=== PATIENT | male | born 1980 | race Caucasian/White ===

== ENCOUNTER 2018-12-08 07:20 | Inpatient (IN) ==
--- NOTE | 2018-12-08 08:01 | PROVIDER DOCUMENTATION ---
HPI-General Adult - General Chief Complaint: Generalized Pain Stated Complaint: ABD PAIN Time Seen by Provider: 12/08/18 07:41 Source: patient Allergies/Adverse Reactions: Patient Allergies Allergy/AdvReac Type Severity Reaction Status Date / Time No Known Allergies Allergy Verified 12/08/18 07:32 - History of Present Illness -Gen Adult Nature of Presenting Problems: Presents to the with complaints of generalized body cramps. he states this has been going on for the past few days. 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 He states he has been trying to drink pedialyte. He states this has happened to him in the past where he needed to stay in the hospital and receive 3 bags of saline. He is also an everyday drinker of 1 pint of alcohol per day. He denies any nausea, vomiting, diarrhea, constipation, fevers or chills. Location of Pain/Injury: reports: generalized Quality of Pain: reports: cramping Onset/Duration: reports: 3 days ago Timing: reports: still present Modifying Factors: improves with: nothing Similar Symptoms Previously?: Yes Recently seen or treated by another doctor?: No Review of Systems - Adult - REVIEW OF SYSTEMS - ADULT Constitutional: reports: no symptoms reported Eyes: reports: no symptoms reported Ears, Nose, Mouth & Throat: reports: no symptoms reported Cardiovascular: reports: no symptoms reported Respiratory: reports: no symptoms reported Gastrointestinal: reports: no symptoms reported Genitourinary: reports: no symptoms reported Musculoskeletal: reports: frequent leg cramps, muscle aches, muscle weakness Integumentary: reports: no symptoms reported Neurological: reports: no symptoms reported Psychiatric: reports: no symptoms reported Endocrine: reports: no symptoms reported Hematologic/Lymphatic: reports: no symptoms reported Allergic/Immunologic: reports: no symptoms reported All Other Systems: Reviewed and Negative Past History - Adult - PAST MEDICAL HISTORY-ADULT Review of Records: reports: Old Records Reviewed, Nursing Assessment Review Physical Exam-General - PHYSICAL EXAM-ADULT Initial Vital Signs Reviewed: Yes - CONSTITUTIONAL General Appearance: appears well, alert, no apparent distress, other (sitting in bed, palying on cell phone) - EYES Eyes: PERRL/EOMI - HEAD, EARS, NOSE, MOUTH & THROAT HENMT: normocephalic/atraumatic, moist mucous membranes - NECK Neck: non-tender, full range of motion - RESPIRATORY Respiratory: chest non-tender, lungs clear, normal breath sounds - CARDIOVASCULAR Cardiovascular: normal peripheral pulses, tachycardia - GASTROINTESTINAL (ABDOMEN) Abdominal Exam: normal bowel sounds, non tender, soft - MUSCULOSKELETAL Back Exam: normal inspection Extremity: normal range of motion, normal gait, normal inspection - SKIN Integumentary: normal color, warm/dry - NEUROLOGIC 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, no motor/sensory deficits - PSYCHIATRIC Psych/Mental Status: normal mood/affect, oriented x 3 Progress - PLAN OF CARE/RESULTS Progress/Plan/Lab Results: Vital Signs - 8 hr 12/08/18 07:27 Temperature 98.5 F Pulse Rate 121 H Respiratory Rate 18 Blood Pressure 140/92 O2 Sat by Pulse Oximetry 99 Orders Category Date Time Status IV [Saline Loc] NOW Care 12/08/18 07:56 Active ALCOHOL BLOOD Stat Lab 12/08/18 07:57 Uncollected CBC WITH ELECTRONIC DIFF [HEME] Stat Lab 12/08/18 07:55 Uncollected CK TOTAL [CHEM] Stat Lab 12/08/18 07:57 Uncollected COMPREHENSIVE METABOLIC PANEL [CHEM] Stat Lab 12/08/18 07:[address] W/POSS RFLX CULT [URINALYSIS] Stat Lab 12/08/18 07:55 Uncollected Patient very well appearing. Sitting in bed on cell phone. UDS showing multiple drugs. No ketones in urine. Cr slightly elevated to 1.3 and initial tachycardia to 121. Patient given 1L NS in the ED. CK came back at 2300. Will admit to obs for rhabdo. Spoke to Dr Knox in the ED while he was evaluating another patient and patient was accepted. Result Diagrams: 12/08/18 08:03 12/08/18 08:03 Departure - Departure Date of Disposition Decision: 12/08/18 Time of Disposition Decision: 10:20 DIAGNOSIS: Rhabdomyolysis, FAITH (acute kidney injury) Disposition: ADMITTED INPATIENT 09 Certified Medical Emergency: Emergent Condition: Stable Additional Freetext Instructions: ED Follow Up Instructions: You have been treated by a care provider in the Emergency Department. These instructions are being provided to you so you can have an understanding of how to care for yourself upon discharge. Upon discharge from the Emergency Department, you are responsible for making arrangements for follow-up care by a physician of your choice. Take all prescribed medications as directed. Return to the Emergency Department immediately for any new or worsening symptoms. You may call the Physician Referral phone number at [phone] to obtain a list of Physicians who are taking new patients. Referrals and Follow-Ups: None,PCP [Primary Care Provider] - - Critical Care Note This patient required my direct & personal management of CC.: No Attestation - Physician/ CECI Attestation Patient care was provided by Advanced Practice Provider:: No The physician spent face to face time with patient:: Yes Advanced Practice Provider documentation review:: Supervising physician onsite and consulted in the evaluation and care of this patient. The physician did have a face to face encounter with the patient.
[2018-12-08 08:22] LABS: BILIRUBIN URINE NEGATIVE (NEGATIVE); BLOOD URINE NEGATIVE (NEGATIVE); CLARITY CLEAR (CLEAR); COLOR YELLOW; GLUCOSE URINE NEGATIVE (NEGATIVE); KETONE URINE NEGATIVE (NEGATIVE); LEUKOCYTES URINE TRACE (NEGATIVE); NITRITE URINE NEGATIVE (NEGATIVE); PROTEIN URINE NEGATIVE (NEGATIVE); UROBILINOGEN URINE NORMAL
[2018-12-08 08:28] LABS: BASO# 0.03 X1000 (0.0-0.2); BASO% 0.5 % (0.0-0.8); EOS# 0.24 X1000 (0.0-0.7); EOS% 4.2 % (0.0-10.0); HEMATOCRIT 46.6 % (42.0-52.0); HEMOGLOBIN 15.6 g/dL (14.0-18.0); IMM GRAN# 0.02 X1000 (0.0-0.04); IMM GRAN% 0.4 % (0.0-0.5); LYMPH# 1.39 X1000 (1.2-3.4); LYMPH% 24.3 % (20.5-51.1); MCH 30.8 PG (27-31); MCHC 33.5 g/dL (33-37); MCV 92.1 FL (81-99); MONO# 0.82 X1000 (0.11-0.59); MONO% 14.4 % (1.7-9.3); MPV 10.1 FL (7.4-10.4); NEUT# 3.21 X1000 (1.4-6.5); NEUT% 56.2 % (42.2-75.2); PLT 381 X1000 (130-400); RBC 5.06 XMIL (4.7-6.1); RDW 16.8 % (11.5-14.5); WBC 5.71 X1000 (4.8-10.8)
[2018-12-08 08:28] LABS: URINE EPITHELIAL CELLS <10 /HPF (<10); URINE SOURCE CLEAN CATCH; URINE WBC <10 /HPF (<10)
[2018-12-08 08:37] LABS: UR AMPHETAMINES QUAL PRESUMPTIVE POSITIVE (NONE DETECT); UR BARBITUATES QUAL NONE DETECTED (NONE DETECT); UR BENZODIAZEPIN QUAL NONE DETECTED (NONE DETECT); UR COCAINE QUAL NONE DETECTED (NONE DETECT); UR METHADONE QUAL NONE DETECTED (NONE DETECT); UR METHAMPHETAMINE QUAL NONE DETECTED (NONE DETECT); UR OPIATES QUAL NONE DETECTED (NONE DETECT); UR OXYCODONE QUAL NONE DETECTED (NONE DETECT); UR PCP QUAL NONE DETECTED (NONE DETECT); UR PROPOXYPHENE QUAL NONE DETECTED (NONE DETECT)
[2018-12-08 08:38] LABS: UR CANNABINOIDS QUAL PRESUMPTIVE POSITIVE (NONE DETECT); UR TCA QUAL PRESUMPTIVE POSITIVE (NONE DETECT)
[2018-12-08 08:52] LABS: AGAP 10; ALBUMIN 4.3 g/dL (3.5-5.0); ALKALINE PHOSPHATASE 62 U/L (32-122); BUN 12 mg/dL (8-22); CALCIUM 9.3 mg/dL (8.8-10.2); CHLORIDE 98 mmol/L (98-107); COSMO 273; CREATININE 1.3 mg/dL (0.7-1.2); ESTIMATED GFR > 60; GLUCOSE 93 mg/dL (70-104); GOT 84 U/L (10-34); GPT 42 U/L (10-44); POTASSIUM 5.1 mmol/L (3.5-5.1); SODIUM 137 mmol/L (136-145); TCO2 29 mmol/L (25-35); TOTAL PROTEIN 7.8 g/dL (6.3-8.3)
[2018-12-08] MEDS ORDERED: NS 1,000 ML IV ONE ×2 (08:58→10:22)
[2018-12-08] MEDS ORDERED: MOTRIN PO ONE (08:58)
[2018-12-08 09:11] LABS: CK TOTAL 2313 U/L (24-204)
[2018-12-08] MEDS ORDERED: NS 150 ML IV ONE ×2 (10:21→10:45)
[2018-12-08] MEDS: NS 1,000 ML IV SCH ×2 (14:23→22:10)
[2018-12-08] MEDS: LIBRIUM PO SCH ×2 (14:23→20:06)
[2018-12-08] MEDS: NICODERM PATCH TD SCH (14:23)
[2018-12-08] MEDS: M.V.I.-12 10 ML, FOLIC ACID 1 MG, MAGNESIUM SULFATE 1 GM, THIAMINE 100 MG in NS 1,000 ML IV SCH (14:59)
--- NOTE | 2018-12-08 15:10 | HISTORY AND PHYSICAL ---
PRIMARY CARE PHYSICIAN: None. CHIEF COMPLAINT: Generalized body aches and cramping. HISTORY OF PRESENTING ILLNESS: This is a 38-year-old male who presents to [facility] ER with complaints of generalized body cramping that has progressively worsened over the last several days. He states he works outside doing heavy lifting and had been trying to drink Pedialyte. He has had rhabdomyolysis in the past. He notes that he drinks a pint of alcohol daily and has done that for several years apparently. When first asked about his drug use, he denied any until I said that well your urine drug screen had multiple positives and then he admitted that yesterday he used a line of methamphetamine that he states a "co-worker" had and that was the 1st time that he had ever used methamphetamines. His urine drug screen was presumptive positive for tricyclics, amphetamines and cannabinoids. When I questioned him about marijuana use, he did admit to using marijuana 1 joint every other day. His laboratory data showed a creatine kinase of 2313. Urinalysis was negative. He was admitted to the medical unit for further evaluation and treatment. It is noted that the patient wanted to leave the floor and the tech told him that he could not leave the floor with an IV, stated he needed to move his car, explained that his could move his car, went back to the room and both the patient and the were gone and had exited down our back stairwell. There well waited on the patient to arrive back to his room. He came back up the back stairwell. It was noted to smell of marijuana per our staff. I explained to the patient that he could not leave the floor with a IV in place. If he continued to leave the floor, we would have to remove his IV and we would consider that he did not want any treatment and the patient verbalized understanding and stated that he would not leave the floor again. PAST MEDICAL HISTORY: Rhabdomyolysis. PAST SURGICAL HISTORY: None. FAMILY HISTORY: Reviewed and noncontributory. SOCIAL HISTORY: He currently lives with his . Smokes a pack of cigarettes daily. Drinks a pint of alcohol daily. Uses methamphetamine and cannabinoids. ALLERGIES: He has no known drug allergies. HOME MEDICATIONS: He does not take any medicines on a routine basis prescribed by a physician. LABORATORY DATA: Showed a white blood cell count of 5.71, hemoglobin 15.6, hematocrit 46.6, platelets 381,000. Sodium 137, potassium 5.1, chloride 98, CO2 29, BUN of 12, creatinine 1.3, glucose 93. AST of 84, ALT 42. Creatine kinase was 2313. Urinalysis was negative. Again, urine drug screen was presumptive positive for tricyclics, amphetamines, and cannabinoids. Serum alcohol level showed none detected. REVIEW OF SYSTEMS: He denied any fever, chills, blurred vision, dizziness. He complained of generalized muscle cramps and body aches. Denied any abdominal pain, constipation, diarrhea, burning or hurting with urination. PHYSICAL EXAMINATION: On arrival he had a temperature of 98.5 degrees, pulse 121, respirations 18, blood pressure 140/92 saturating 99% on room air. GENERAL: This is a 38-year-old male sitting on the side of the bed answers questions appropriately. HEENT: Normocephalic, atraumatic. Normal ENT inspection. Oropharynx and nares are clear. Pupils are equal, round, reactive to light and accommodation. Extraocular movements are intact. NECK: Normal inspection, normal range of motion. LUNGS: Clear to auscultation bilaterally with equal lung expansion. Chest wall movement. HEART: Regular rate and rhythm. No murmurs, rubs, or gallops. It is noted on arrival he was in sinus tachycardia. ABDOMEN: Soft, nontender, nondistended. Bowel sounds are present x4 quadrants. MUSCULOSKELETAL: He has 5/5 strength x4 extremities. He does have a little mild tremor to his hands, most likely related to DTs. NEUROLOGICAL: The cranial nerves 2-12 appear grossly intact. ASSESSMENT: 1. Rhabdomyolysis. 2. Ethanol abuse. 3. Polysubstance drug abuse. 4. Tobacco abuse. PLAN: 1. He will be admitted to the medical unit. Placed on a regular diet. We will place on normal saline at 150 mL an hour, give a banana bag of fluids daily, Ativan 1 mg IV every 4 hours p.r.n. for alcohol withdrawal. 2. Nicotine patch 21 mg transdermally daily and place him on a high-dose Librium taper. 3. Recheck a CBC, CMP, cardiac profile in the a.m. 4. Again, the patient was notified that he could not leave the floor with an IV in place without accompaniment of a staff member. If he continued to try to leave the floor with an IV and that we would remove his IV and assume that he did not want any medical treatment. The patient verbalized understanding, stated he would not leave the floor any further. 5. Further orders after seen by attending. Dictated by DEBBIE Perez for Maico Knox MD cc: DEBBIE Perez MD
[2018-12-08 15:43] LABS: AGAP 8; ALBUMIN 3.5 g/dL (3.5-5.0); ALKALINE PHOSPHATASE 51 U/L (32-122); BUN 13 mg/dL (8-22); CALCIUM 8.2 mg/dL (8.8-10.2); CHLORIDE 105 mmol/L (98-107); COSMO 276; CREATININE 1.3 mg/dL (0.7-1.2); ESTIMATED GFR > 60; GLUCOSE 76 mg/dL (70-104); GOT 54 U/L (10-34); GPT 33 U/L (10-44); POTASSIUM 4.7 mmol/L (3.5-5.1); SODIUM 139 mmol/L (136-145); TCO2 26 mmol/L (25-35); TOTAL PROTEIN 6.4 g/dL (6.3-8.3)
[2018-12-08] MEDS: ATIVAN IV PRN ×2 (16:38→23:02)
[2018-12-08] MEDS ORDERED: FLU VACCINE IM ONE (16:50)
[2018-12-08] MEDS: NUBAIN IV PRN (21:18)
[2018-12-09] MEDS: LIBRIUM PO SCH ×4 (02:27→20:15)
[2018-12-09] MEDS: NS 1,000 ML IV SCH ×4 (04:49→23:48)
[2018-12-09 07:29] LABS: BASO# 0.03 X1000 (0.0-0.2); BASO% 0.6 % (0.0-0.8); EOS# 0.51 X1000 (0.0-0.7); EOS% 10.1 % (0.0-10.0); HEMOGLOBIN 13.3 g/dL (14.0-18.0); IMM GRAN# 0.05 X1000 (0.0-0.04); LYMPH% 37.5 % (20.5-51.1); MCH 30.4 PG (27-31); MCHC 32.4 g/dL (33-37); MCV 93.6 FL (81-99); MONO# 0.68 X1000 (0.11-0.59); MONO% 13.4 % (1.7-9.3); MPV 10.3 FL (7.4-10.4); NEUT# 1.89 X1000 (1.4-6.5); NEUT% 37.4 % (42.2-75.2); PLT 327 X1000 (130-400); RBC 4.38 XMIL (4.7-6.1); RDW 16.5 % (11.5-14.5); WBC 5.06 X1000 (4.8-10.8)
[2018-12-09 08:02] LABS: CK INDEX 0.4 (0.0-2.5); CK-MB 3.14 ng/mL (0.0-5.0)
[2018-12-09] MEDS: NICODERM PATCH TD SCH (08:25)
[2018-12-09] MEDS: M.V.I.-12 10 ML, FOLIC ACID 1 MG, MAGNESIUM SULFATE 1 GM, THIAMINE 100 MG in NS 1,000 ML IV SCH (08:25)
[2018-12-09] MEDS: NUBAIN IV PRN ×2 (11:07→23:43)
[2018-12-09 12:15] LABS: AGAP 8; ALBUMIN 3.6 g/dL (3.5-5.0); ALKALINE PHOSPHATASE 51 U/L (32-122); BUN 9 mg/dL (8-22); CALCIUM 7.9 mg/dL (8.8-10.2); CHLORIDE 106 mmol/L (98-107); COSMO 279; CREATININE 1.2 mg/dL (0.7-1.2); ESTIMATED GFR > 60; GLUCOSE 90 mg/dL (70-104); GOT 39 U/L (10-34); GPT 31 U/L (10-44); POTASSIUM 4.7 mmol/L (3.5-5.1); SODIUM 141 mmol/L (136-145); TCO2 26 mmol/L (25-35); TOTAL PROTEIN 6.3 g/dL (6.3-8.3)
[2018-12-09 12:16] LABS: CK PROFILE 714 U/L (24-204)
[2018-12-09 12:31] LABS: CK INDEX 0.4 (0.0-2.5)
[2018-12-09] MEDS: ATIVAN IV PRN ×2 (13:25→23:43)
--- NOTE | 2018-12-09 14:33 | PROGRESS NOTE ---
DATE: 12/09/2018 SUBJECTIVE: This patient is feeling better. He is complaining of generalized muscle soreness and anxiety. I had a large conversation with the patient and the , who is at the bedside. Laboratory looks better today but creatinine was slightly elevated yesterday. AST elevated as well but trending down. I will continue with 1 more day of IV fluids. I will hopefully discharge this patient home tomorrow. OBJECTIVE: Vital Signs: Temperature 97.4 degrees, pulse 93, respiratory rate 18, blood pressure 130/96, oxygen saturation 100% on room air. HEENT: Head normocephalic. No trauma. PERRLA. Neck: Supple. No JVD. No masses. Central trachea. Chest: Clear to auscultation. No wheezing. No rales. Abdomen: Soft, nontender, nondistended. No hepatosplenomegaly. Extremities: No edema. No clubbing. No cyanosis. Neurological Examination: The patient is alert and oriented x3. No focal deficits. Laboratory: WBC 5, hemoglobin 13.3, hematocrit 41, platelets 327,000. Sodium 141, potassium 4.7, chloride 106, bicarbonate 26, BUN 9, creatinine 1.2, glucose 90, calcium 7.9. AST 39, ALT 31, alkaline phosphatase 51. CK 714. Albumin 3.6. ASSESSMENT AND PLAN: 1. Rhabdomyolysis. I will continue with intravenous fluids. Hopefully, tomorrow, if the CK level is trending down, I will discharge him. He came in with acute kidney injury and the creatinine decreased from 1.3 to 1.2. I do not have a baseline on this patient. 2. Alcohol abuse. This patient has been highly advised against alcohol use. We will continue on a Librium taper. Also, I will go ahead and continue with the banana bag. I will continue with daily cessation education. 3. Polysubstance abuse. This patient has been highly advised against polysubstance abuse. As per the patient, this is the first time that he did amphetamines. I will continue with daily cessation education. He seems to understand. His is at the bedside. 4. Tobacco use. He has been advised against tobacco use. I will do cessation education as well. 5. I had a large conversation with the patient about rhabdomyolysis, alcohol abuse, weightlifting, tobacco use, and drug use. I recommended to him to not lift weights for at least a few days since he came in with rhabdomyolysis. He seems to understand. Also, I advised the patient not to leave the medical floor since he has an intravenous line placed. Hopefully, tomorrow morning, I will discharge this patient home with a strict followup by his primary care doctor. Again, he has been advised against tobacco use, alcohol use, and drug abuse. He seems to understand. His is at the bedside. cc: Buddy Beckham MD
[2018-12-10] MEDS: LIBRIUM PO SCH (01:34)
[2018-12-10] MEDS: NS 1,000 ML IV SCH (05:55)
[2018-12-10 06:25] LABS: AGAP 8; ALBUMIN 3.1 g/dL (3.5-5.0); ALKALINE PHOSPHATASE 46 U/L (32-122); BUN 8 mg/dL (8-22); CALCIUM 7.8 mg/dL (8.8-10.2); CHLORIDE 109 mmol/L (98-107); COSMO 284; CREATININE 1.2 mg/dL (0.7-1.2); ESTIMATED GFR > 60; GLUCOSE 102 mg/dL (70-104); GOT 25 U/L (10-34); GPT 24 U/L (10-44); POTASSIUM 4.7 mmol/L (3.5-5.1); SODIUM 143 mmol/L (136-145); TCO2 26 mmol/L (25-35); TOTAL PROTEIN 5.6 g/dL (6.3-8.3)
[2018-12-10 06:27] LABS: CK PROFILE 363 U/L (24-204)
[2018-12-10 06:39] VITALS: BP 111/67
[2018-12-10 06:51] LABS: CK INDEX 0.4 (0.0-2.5); CK-MB 1.46 ng/mL (0.0-5.0)
--- NOTE | 2018-12-10 16:08 | DISCHARGE SUMMARY ---
ADMISSION DATE: 12/08/2018 DISCHARGE DATE: 12/10/2018 PRIMARY CARE PHYSICIAN: None. ADMISSION DIAGNOSES: 1. Rhabdomyolysis. 2. Ethanol abuse. 3. Polysubstance abuse. 4. Tobacco abuse. DISCHARGE DIAGNOSES: 1. Rhabdomyolysis, resolved. 2. Alcohol abuse. 3. Polysubstance abuse. 4. Tobacco abuse. SUMMARY OF FINDINGS: This is a 38-year-old male who presented to the ER with complaints of generalized body cramping that had progressively worsened over the last several days. States he works outside doing heavy lifting and tried to drink Pedialyte. States he has had rhabdomyolysis in the past. Notes that he drinks a pint of alcohol daily and has done so for several years. When we 1st discussed drug use he denied any until I told him that his urine drug screen had multiple positives and then he admitted that he used a lot of methamphetamine the day prior but states that a "co-worker had it and that was the 1st time he had ever used methamphetamine. His drug screen was presumptive positive for tricyclics, amphetamines and cannabinoids. When I questioned him about the marijuana he did admit to using marijuana 1 joint every other day. On arrival his creatine kinase was 2313. Today it is down to 363. He has received IV fluids. We placed him on a high-dose Librium taper, banana bag of fluids daily. We have discussed at length cessation of polysubstance abuse and cessation of tobacco abuse and cessation of alcohol use. The patient verbalizes understanding. He had to be instructed many times to not leave the floor while he was admitted but continued to use our back stairwell to go downstairs. He would verbalize understanding that he would not do this but today it is felt like he is much improved and we can safely discharge him home. DISCHARGE MEDICATIONS: Will give him a prescription for Librium 10 mg p.o. q.8 hours #30 with no refills. FOLLOWUP: He will need to obtain a primary care physician. We will give him the physician referral line. TIME SPENT: 33 minutes . Dictated by DEBBIE Perez for Buddy Beckham MD cc: DEBBIE Perez MD
== END 2018-12-10 08:40 | disposition home or self-care (01) | DRG 558 ==
LOC: P.ED 07:20 → P.MEDSURG 07:20 → SUATTDRO 13:18 → OBSVTOIN 13:18
PROVIDERS: ATTEND Internal Medicine
CPT/HCPCS: 80053; 80104; 80301; 80305; 80307; 80320; 81001; 82055; 82550; 82553; 85025; 96360; 96361; 99285; A9270; G0431; G0434; G0477; G0480; G6040; J2060; J2300; J3411; J3475; J7030; J7050